=== PATIENT | male | born 1940 | race Caucasian/White ===

== ENCOUNTER 2018-07-16 13:31 | Inpatient (IN) | payer BC, MEDICARE ==
[~2018-07-16] VITALS: Ht 50.8 cm; Wt 96.2 kg
[~2018-07-16 13:31] MED LIST: AMLO10TA4 PO; Aspirin PO; LIP40 PO; LOSA50TA3 PO
[2018-07-16] MEDS ORDERED: SODIUM CHLORIDE 0.9% 1,000 ML IV ONE (14:21)
[2018-07-16] MEDS ORDERED: ATROPINE SULFATE 1MG/10ML SYR IV ONE (14:45)
[2018-07-16 14:54] LABS: BASOPHILS % 0.8 % (0.0-2.0); EOSINOPHILS % 1.1 % (0.0-5.0); HEMATOCRIT. 36.9 % (42.0-52.0); HEMOGLOBIN. 12.7 g/dL (14.0-18.0); LYMPHOCYTES % 28.4 % (20.0-50.0); MEAN CORPUSCULAR HEMOGLOBIN 32.2 pg (28.0-32.0); MEAN CORPUSCULAR VOLUME 93.1 fL (80.0-94.0); MEAN PLATELET VOLUME 6.9 fl (7.4-10.4); MONOCYTES % 7.3 % (2.0-8.0); NEUTROPHILS % 62.4 % (40.0-76.0); PLATELET 269 x1000/uL (130-400); RED BLOOD CELL COUNT 3.96 mill/uL (4.7-6.1); RED CELL DISTRIBUTION WIDTH 14.1 % (11.6-14.6)
[2018-07-16 15:01] LABS: PROTHROMBIN TIME 10.4 sec (9.1-11.1)
[2018-07-16 15:05] LABS: CHLORIDE 104 mEq/L (98-107)
[2018-07-16] MEDS ORDERED: ATROPINE SULFATE 1MG/ML VIAL IV PRN ×2 (15:45→19:00)
[2018-07-16 16:30] LABS: DIGOXIN < 0.1 ng/mL (0.9-2.0)
[2018-07-16] MEDS ORDERED: DOCUSATE SODIUM 100MG CAPSULE PO PRN (17:00)
[2018-07-16] MEDS ORDERED: ACETAMINOPHEN 325MG TABLET PO PRN (17:00)
[2018-07-16] MEDS ORDERED: ONDANSETRON HCL 4MG/2ML INJ IV PRN (17:00)
[2018-07-16 17:45] LABS: CLARITY URINE CLEAR (CLEAR); COLOR URINE YELLOW (YELLOW); KETONES URINE NEGATIVE (NEGATIVE); LEUKOCYTE ESTERASE URINE NEGATIVE (NEGATIVE); NITRITE URINE NEGATIVE (NEGATIVE); OCCULT BLOOD URINE NEGATIVE (NEGATIVE); PROTEIN URINE NEGATIVE (NEGATIVE); SPECIFIC GRAVITY URINE 1.008 (1.005-1.030); UROBILINOGEN URINE 0.2 E.U./dL (0.2-1.0)
[2018-07-16 20:00] VITALS: BP 124/72
[2018-07-16 21:25] VITALS: BP 107/59
[2018-07-16 22:29] VITALS: BP 126/80
[2018-07-17] VITALS (8 sets, daily range): BP systolic 94–113; BP diastolic 37–87
[2018-07-17 07:17] LABS: BASOPHILS % 0.4 % (0.0-2.0); EOSINOPHILS % 1.4 % (0.0-5.0); HEMATOCRIT. 38.2 % (42.0-52.0); HEMOGLOBIN. 13.1 g/dL (14.0-18.0); LYMPHOCYTES % 29.6 % (20.0-50.0); MEAN CORPUSCULAR HEMOGLOBIN 32.3 pg (28.0-32.0); MEAN CORPUSCULAR VOLUME 94.1 fL (80.0-94.0); MEAN PLATELET VOLUME 7.1 fl (7.4-10.4); MONOCYTES % 6.9 % (2.0-8.0); NEUTROPHILS % 61.7 % (40.0-76.0); PLATELET 263 x1000/uL (130-400); RED BLOOD CELL COUNT 4.06 mill/uL (4.7-6.1); RED CELL DISTRIBUTION WIDTH 14.2 % (11.6-14.6)
[2018-07-17 07:27] LABS: CHLORIDE 109 mEq/L (98-107)
[2018-07-17 07:30] LABS: PHOSPHORUS 3.1 mg/dL (2.5-4.9)
[2018-07-17] MEDS ORDERED: CLON0.2T PO (08:22)
[2018-07-17] MEDS ORDERED: FURO-152 PO (08:22)
[2018-07-17] MEDS ORDERED: POTA8CAP10 PO (08:23)
[2018-07-17] MEDS ORDERED: TRAM50TA3 PO (08:25)
[2018-07-17] MEDS ORDERED: SODIUM CHLORIDE 0.9% 500 ML IV NR (09:30)
[2018-07-17] MEDS: SODIUM CHLORIDE 0.9% 1,000 ML IV SCH ×2 (09:41→22:50)
[2018-07-18] VITALS: BP 121/45
[2018-07-18] MEDS: SODIUM CHLORIDE 0.9% 1,000 ML IV SCH (00:19)
[2018-07-18 04:00] VITALS: BP 142/76
[2018-07-18 07:29] LABS: BASOPHILS % 0.3 % (0.0-2.0); EOSINOPHILS % 1.5 % (0.0-5.0); HEMATOCRIT. 42.1 % (42.0-52.0); HEMOGLOBIN. 14.2 g/dL (14.0-18.0); LYMPHOCYTES % 32.6 % (20.0-50.0); MEAN CORPUSCULAR HEMOGLOBIN 31.8 pg (28.0-32.0); MEAN CORPUSCULAR VOLUME 94.2 fL (80.0-94.0); MEAN PLATELET VOLUME 7.1 fl (7.4-10.4); MONOCYTES % 6.2 % (2.0-8.0); NEUTROPHILS % 59.4 % (40.0-76.0); PLATELET 277 x1000/uL (130-400); RED BLOOD CELL COUNT 4.47 mill/uL (4.7-6.1); RED CELL DISTRIBUTION WIDTH 14.2 % (11.6-14.6)
[2018-07-18 07:46] LABS: CHLORIDE 108 mEq/L (98-107)
[2018-07-18 08:00] VITALS: BP 169/80
[2018-07-18] MEDS ORDERED: AMLODIPINE 10MG TABLET PO SCH (10:00)
[2018-07-18] MEDS ORDERED: LOSARTAN POTASSIUM 50 MG TABLET PO SCH (10:00)
[2018-07-18 12:00] VITALS: BP 148/86
[2018-07-18 13:48] VITALS: BP 148/86
== END 2018-07-18 14:30 | disposition home or self-care (01) | DRG 315 ==
LOC: ER 13:31 → 7WST 15:33 → EDBEDREQSVC 15:37 → EDBEDREQ 15:37 → EDBEDREQSVC 19:54 → ENRESERV 20:14
PROVIDERS: ADMIT Family Medicine Adult Medicine; ATTEND Family Medicine Adult Medicine
DX: I95.9 Hypotension, unspecified (principal); I69.351 Hemiplegia and hemiparesis following cerebral infarction affecting right dominant side; R00.1 Bradycardia, unspecified; I10 Essential (primary) hypertension; Z82.49 Family history of ischemic heart disease and other diseases of the circulatory system; Z79.899 Other long term (current) drug therapy; Z79.82 Long term (current) use of aspirin
CPT/HCPCS: 36415; 71045; 80048; 80162; 83605; 83735; 83880; 84100; 84443; 84484; 93005; 93306; 96361; 96374; 99291; J0461; J7030; J7040

== ENCOUNTER 2024-03-15 11:48 | Emergency (ER) | payer BC, MEDICARE ==
[~2024-03-15] VITALS: Ht 167.6 cm; Wt 81.6 kg
[~2024-03-15 11:48] MED LIST changes: +FURO-152 PO; +LOSA-413 PO; -LOSA50TA3 PO; +POTA8CAP20 PO; +TRAM50TA3 PO
[2024-03-15 11:57] VITALS: BP 169/87; PULSE 76; RESP 16; TEMP 98.4; O2SAT 96
== END 2024-03-15 16:49 | disposition home or self-care (01) ==
LOC: ER 11:48
DX: S42.031A Displaced fracture of lateral end of right clavicle, initial encounter for closed fracture (principal); I10 Essential (primary) hypertension; R51.9 Headache, unspecified; Z86.73 Personal history of transient ischemic attack (TIA), and cerebral infarction without residual deficits; W18.39XA Other fall on same level, initial encounter; Y93.89 Activity, other specified; Y92.89 Other specified places as the place of occurrence of the external cause; Y99.8 Other external cause status
CPT/HCPCS: 70360; 71045; 73030; 73060; 99284; A4565

== ENCOUNTER 2024-06-06 11:27 | Emergency (ER) | payer BC, MEDICARE ==
[~2024-06-06] VITALS: Ht 170.2 cm; Wt 91.0 kg
[2024-06-06 12:00] VITALS: TEMP 98.3; O2SAT 97
[2024-06-06] MEDS ORDERED: BO1 TP (14:46)
[2024-06-06 14:55] VITALS: BP 130/78; PULSE 70; RESP 14; O2SAT 99
== END 2024-06-06 14:56 | disposition home or self-care (01) ==
LOC: ER 11:27
DX: S90.512A Abrasion, left ankle, initial encounter (principal); E78.00 Pure hypercholesterolemia, unspecified; I10 Essential (primary) hypertension; Z79.899 Other long term (current) drug therapy; Z98.890 Other specified postprocedural states; Z86.73 Personal history of transient ischemic attack (TIA), and cerebral infarction without residual deficits; X58.XXXA Exposure to other specified factors, initial encounter; Y93.89 Activity, other specified; Y92.89 Other specified places as the place of occurrence of the external cause; Y99.8 Other external cause status
CPT/HCPCS: 73610; 73630; 99284